=== PATIENT | female | born 2000 | race Caucasian/White ===

== ENCOUNTER 2022-06-08 21:17 | Emergency (ER) | payer BC ==
[2022-06-08] MEDS ORDERED: Ketorolac Tromethamine 30 MG/ML VIAL ONE (22:33)
[2022-06-08] MEDS ORDERED: Ondansetron ODT 4 MG TAB ONE (22:33)
== END 2022-06-09 00:31 | disposition home or self-care (01) ==
LOC: CSHERS 21:17
DX: S83.195A Other dislocation of left knee, initial encounter (principal); X50.1XXA Overexertion from prolonged static or awkward postures, initial encounter; Y93.51 Activity, roller skating (inline) and skateboarding
CPT/HCPCS: 27781; 96372; J1885; Q0162